=== PATIENT | female | born 1945 | race African-American/Black ===

== ENCOUNTER 2019-04-27 09:22 | Emergency (ER) | payer OTHER ==
[~2019-04-27] VITALS: Ht 167.6 cm; Wt 75.0 kg
[2019-04-27] MEDS ORDERED: ACETAMINOPHEN 500MG TABLET PO ONE (10:00)
[2019-04-27] MEDS ORDERED: METOCLOPRAMIDE HCL 10MG/2ML VIAL IV ONE (10:00)
[2019-04-27] MEDS ORDERED: SODIUM CHLORIDE 0.9% 500 ML IV ONE (10:00)
[2019-04-27 10:31] LABS: BASOPHILS % 0.8 % (0.0-2.0); EOSINOPHILS % 0.5 % (0.0-5.0); HEMATOCRIT. 42.9 % (36.0-48.0); HEMOGLOBIN. 13.2 g/dL (12.0-16.0); LYMPHOCYTES % 19.6 % (20.0-50.0); MEAN CORPUSCULAR VOLUME 74.6 fL (81.0-99.0); MEAN PLATELET VOLUME 7.6 fl (7.4-10.4); MONOCYTES % 5.1 % (2.0-8.0); PLATELET 305 x1000/uL (130-400); RED BLOOD CELL COUNT 5.76 mill/uL (4.2-5.4); RED CELL DISTRIBUTION WIDTH 15.5 % (11.6-14.6)
[2019-04-27 10:36] LABS: CHLORIDE 106 mEq/L (98-107)
[2019-04-27 10:45] LABS: CLARITY URINE CLEAR (CLEAR); COLOR URINE YELLOW (YELLOW); KETONES URINE NEGATIVE (NEGATIVE); LEUKOCYTE ESTERASE URINE NEGATIVE (NEGATIVE); NITRITE URINE NEGATIVE (NEGATIVE); OCCULT BLOOD URINE NEGATIVE (NEGATIVE); PH URINE 8.5 (4.5-8.0); PROTEIN URINE NEGATIVE (NEGATIVE); SPECIFIC GRAVITY URINE 1.009 (1.005-1.030); UROBILINOGEN URINE 0.2 E.U./dL (0.2-1.0)
[2019-04-27 13:15] VITALS: BP 137/63
== END 2019-04-27 13:05 | disposition home or self-care (01) ==
LOC: ER 09:22
DX: I10 Essential (primary) hypertension (principal); E11.9 Type 2 diabetes mellitus without complications
CPT/HCPCS: 36415; 70450; 80053; 81003; 85025; 96374; 99284; J2765; J7040

== ENCOUNTER 2021-02-22 21:50 | Emergency (ER) | payer OTHER ==
[~2021-02-22] VITALS: Ht 167.6 cm; Wt 75.0 kg
[2021-02-22 22:55] LABS: BASOPHILS % 0.8 % (0.0-2.0); EOSINOPHILS % 3.7 % (0.0-5.0); HEMATOCRIT. 34.1 % (36.0-48.0); HEMOGLOBIN. 10.4 g/dL (12.0-16.0); LYMPHOCYTES % 25.7 % (20.0-50.0); MEAN CORPUSCULAR HEMOGLOBIN 24.2 pg (28.0-32.0); MEAN CORPUSCULAR VOLUME 79.6 fL (81.0-99.0); MEAN PLATELET VOLUME 7.2 fl (7.4-10.4); MONOCYTES % 8.7 % (2.0-8.0); NEUTROPHILS % 61.1 % (40.0-76.0); PLATELET 285 x1000/uL (130-400); RED BLOOD CELL COUNT 4.28 mill/uL (4.2-5.4); RED CELL DISTRIBUTION WIDTH 17.5 % (11.6-14.6)
[2021-02-22 23:01] LABS: CHLORIDE 103 mEq/L (98-107)
[2021-02-22 23:03] LABS: CLARITY URINE CLEAR (CLEAR); COLOR URINE YELLOW (YELLOW); KETONES URINE TRACE (NEGATIVE); LEUKOCYTE ESTERASE URINE 2+ (NEGATIVE); NITRITE URINE NEGATIVE (NEGATIVE); OCCULT BLOOD URINE NEGATIVE (NEGATIVE); PROTEIN URINE NEGATIVE (NEGATIVE)
[2021-02-22] MEDS ORDERED: SODIUM BICARBONATE 8.4% 1 MEQ/ML 50ML SYR IV NR (23:30)
[2021-02-22] MEDS ORDERED: CALCIUM CHLORIDE 1GM/10ML SYR IV NR (23:30)
[2021-02-22] MEDS ORDERED: INSULIN REGULAR (HUMULIN R) 300UNITS/3ML VIAL IV NR (23:30)
[2021-02-22] MEDS ORDERED: DEXTROSE 50% WATER 50ML SYRINGE IV NR (23:30)
[2021-02-23] MEDS ORDERED: SODIUM CHLORIDE 0.9% 1,000 ML IV ONE (01:45)
[2021-02-23] MEDS ORDERED: IOHEXOL-350 100 ML BOTTLE ONE (03:25)
[2021-02-23] MEDS ORDERED: CEFTRIAXONE 1 G PREMIX 50 ML IV SCH (05:00)
[2021-02-23 06:30] VITALS: BP 135/61
== END 2021-02-23 06:58 | disposition short-term general hospital (02) ==
LOC: ER 21:50 → CANBEDREQ 02-23 08:04
DX: R07.89 Other chest pain (principal); R55 Syncope and collapse; R61 Generalized hyperhidrosis; C50.919 Malignant neoplasm of unspecified site of unspecified female breast; Z92.21 Personal history of antineoplastic chemotherapy; I10 Essential (primary) hypertension; E11.9 Type 2 diabetes mellitus without complications; Z79.899 Other long term (current) drug therapy; Z79.4 Long term (current) use of insulin
CPT/HCPCS: 36415; 71045; 71275; 80053; 81003; 82962; 83880; 84484; 85025; 93005; 96361; 96365; 96375; 99285; J0696; J1815; J3490; Q9967; Z7610

== ENCOUNTER 2024-10-10 06:42 | Inpatient (IN) | payer OTHER ==
[~2024-10-10] VITALS: Ht 157.5 cm; Wt 60.8 kg
[2024-10-10] MEDS ORDERED: LACTATED RINGERS 1,000 ML IV SCH (07:15)
[2024-10-10 07:38] LABS: BASOPHILS % 0.3 % (0.0-2.0); EOSINOPHILS % 0.6 % (0.0-5.0); HEMATOCRIT. 39.2 % (36.0-48.0); HEMOGLOBIN. 12.2 g/dL (12.0-16.0); LYMPHOCYTES % 10.1 % (20.0-50.0); MEAN PLATELET VOLUME 7.2 fl (7.4-10.4); MONOCYTES % 2.4 % (2.0-8.0); NEUTROPHILS % 86.6 % (40.0-76.0); PLATELET 315 x1000/uL (130-400); RED BLOOD CELL COUNT 5.32 mill/uL (4.2-5.4); RED CELL DISTRIBUTION WIDTH 16.3 % (11.6-14.6)
[2024-10-10 07:56] LABS: CREATININE 0.8 mg/dL (0.6-1.0); UREA NITROGEN BLOOD 16 mg/dL (9-23)
[2024-10-10 07:57] LABS: TROPONIN I HIGH SENSITIVITY < 4 ng/L (3.0-34)
[2024-10-10 07:58] LABS: ASPARTATE AMINOTRANSFERASE 12 IU/L (<34); BILIRUBIN DIRECT 0.2 mg/dL (<=3.0); BILIRUBIN TOTAL 0.6 mg/dL (0.1-1.0); PROTEIN TOTAL 6.6 g/dL (6.0-8.3)
[2024-10-10] MEDS ORDERED: IOHEXOL-350 100 ML BOTTLE ONE ×2 (09:21→23:38)
[2024-10-10] MEDS ORDERED: ENOXAPARIN 60MG/0.6ML SYR SUBCUT ONE (09:45)
[2024-10-10 10:45] VITALS: BP 132/63; PULSE 107; RESP 17; TEMP 36.1; O2SAT 99
[2024-10-10] MEDS ORDERED: CLONIDINE 0.1MG TABLET PO PRN (10:45)
[2024-10-10] MEDS ORDERED: IPRATROPIUM/ALBUTEROL 0.5-3(2.5)MG/3ML NEB NEB PRN (10:45)
[2024-10-10] MEDS ORDERED: ACETAMINOPHEN 325MG TABLET PO PRN (10:45)
[2024-10-10] MEDS ORDERED: ONDANSETRON HCL 4MG/2ML INJ IV PRN (10:45)
[2024-10-10] MEDS ORDERED: ENOXAPARIN 60MG/0.6ML SYR SUBCUT SCH (10:45)
[2024-10-10] MEDS ORDERED: DEXTROSE 50% WATER 50ML SYRINGE IV PRN (10:45)
[2024-10-10] MEDS ORDERED: HYDROCODONE/ACETAMINOPHEN 5/325MG TABLET PO PRN (10:45)
[2024-10-10] MEDS: ENOXAPARIN 60MG/0.6ML SYR SUBCUT SCH ×2 (12:19→21:38)
[2024-10-10] MEDS: BLOOD SUGAR DIAGNOSTIC STRIP TEST SCH (12:20)
[2024-10-10] MEDS: INSULIN LISPRO 100 UNITS/ML SUBCUT SCH (13:08)
[2024-10-10 13:27] LABS: TROPONIN I HIGH SENSITIVITY < 4 ng/L (3.0-34)
[2024-10-10] MEDS: SODIUM CHLORIDE 0.9% 1,000 ML IV SCH (13:28)
[2024-10-10 13:55] LABS: INR 1.1
[2024-10-10] MEDS ORDERED: NALOXONE HCL 0.4MG/ML VIAL IV PRN (14:00)
[2024-10-10 14:42] LABS: CLARITY URINE CLEAR (CLEAR); COLOR URINE YELLOW (YELLOW)
[2024-10-10 14:43] LABS: GLUCOSE URINE NEGATIVE (NEGATIVE); KETONES URINE NEGATIVE (NEGATIVE); LEUKOCYTE ESTERASE URINE 2+ (NEGATIVE); NITRITE URINE NEGATIVE (NEGATIVE); OCCULT BLOOD URINE NEGATIVE (NEGATIVE); PH URINE 7.0 (4.5-8.0); PROTEIN URINE NEGATIVE (NEGATIVE); SPECIFIC GRAVITY URINE 1.046 (1.005-1.030); UROBILINOGEN URINE 1.0 E.U./dL (0.2-1.0)
[2024-10-10 14:50] LABS: *AMPHETAMINES SCREEN URINE NEGATIVE (NEGATIVE); *BARBITURATES SCREEN URINE NEGATIVE (NEGATIVE); *BENZODIAZEPINES SCREEN URINE NEGATIVE (NEGATIVE); *COCAINE SCREEN URINE NEGATIVE (NEGATIVE); CANNABINOID URINE SCREEN NEGATIVE (NEGATIVE); ECSTASY MDMA SCREEN URINE NEGATIVE (NEGATIVE); METHADONE URINE SCREEN NEGATIVE (NEGATIVE); OPIATES URINE SCREEN NEGATIVE (NEGATIVE); PHENCYCLIDINE URINE SCREEN NEGATIVE (NEGATIVE)
[2024-10-10 15:12] LABS: SQUAMOUS EPITHELIAL CELL URINE NONE SEEN /lpf (RARE/1+)
[2024-10-10 15:16] LABS: BACTERIA URINE TRACE; RBC URINE NONE SEEN /hpf (0-2)
[2024-10-10 16:00] VITALS: BP 118/71; PULSE 112; RESP 18; TEMP 36.1; O2SAT 97
[2024-10-10 20:00] VITALS: BP 106/62; PULSE 104; RESP 19; TEMP 36.6; O2SAT 100
[2024-10-10 22:29] LABS: TROPONIN I HIGH SENSITIVITY 5 ng/L (3.0-34)
[2024-10-11] VITALS: BP 126/69; PULSE 106; RESP 19; TEMP 36.6; O2SAT 98
[2024-10-11 01:05] LABS: TROPONIN I HIGH SENSITIVITY 5 ng/L (3.0-34)
[2024-10-11 04:00] VITALS: BP 110/57; PULSE 109; RESP 18; TEMP 36.2; O2SAT 98
[2024-10-11] MEDS: LEVOTHYROXINE SODIUM 75MCG TABLET PO SCH (06:42)
[2024-10-11 08:00] VITALS: BP 113/60; PULSE 97; RESP 18; TEMP 36.2; O2SAT 97
[2024-10-11 08:23] LABS: BASOPHILS % 0.1 % (0.0-2.0); EOSINOPHILS % 1.1 % (0.0-5.0); HEMATOCRIT. 35.9 % (36.0-48.0); HEMOGLOBIN. 11.3 g/dL (12.0-16.0); LYMPHOCYTES % 9.2 % (20.0-50.0); MEAN PLATELET VOLUME 7.5 fl (7.4-10.4); MONOCYTES % 1.6 % (2.0-8.0); NEUTROPHILS % 88.0 % (40.0-76.0); PLATELET 280 x1000/uL (130-400); RED BLOOD CELL COUNT 4.94 mill/uL (4.2-5.4); RED CELL DISTRIBUTION WIDTH 15.6 % (11.6-14.6)
[2024-10-11 08:40] LABS: UREA NITROGEN BLOOD 16 mg/dL (9-23)
[2024-10-11] MEDS: PANTOPRAZOLE SODIUM 40 MG/VIAL IV SCH (08:55)
[2024-10-11 09:21] LABS: CREATININE 0.5 mg/dL (0.6-1.0)
[2024-10-11 12:00] VITALS: BP 114/59; PULSE 102; RESP 17; TEMP 36.3; O2SAT 97
[2024-10-11 16:00] VITALS: BP 126/84; PULSE 101; RESP 17; TEMP 36.3; O2SAT 99
[2024-10-11] MEDS ORDERED: ALBU18HF2 IH (17:46)
[2024-10-11 20:00] VITALS: BP 136/55; PULSE 108; RESP 20; TEMP 36.3; O2SAT 99
[2024-10-11] MEDS: METOPROLOL TARTRATE 25MG TABLET PO SCH (21:50)
[2024-10-12] VITALS: BP 142/50; PULSE 93; RESP 21; TEMP 36.3; O2SAT 100
[2024-10-12 04:00] VITALS: BP 120/40; PULSE 95; RESP 21; TEMP 36.3; O2SAT 99
[2024-10-12 08:00] VITALS: BP 135/72; PULSE 75; RESP 18; TEMP 36.7; O2SAT 98
[2024-10-12 12:00] VITALS: BP 135/97; PULSE 91; RESP 15; TEMP 36.2; O2SAT 99
[2024-10-12] MEDS ORDERED: APIX5TAB MT (14:20)
[2024-10-12] MEDS ORDERED: LEVO75TA7 PO (14:20)
[2024-10-12] MEDS ORDERED: METO25TA6 PO (14:20)
[2024-10-12 16:00] VITALS: BP 155/63; PULSE 94; RESP 18; TEMP 36.4; O2SAT 99
[2024-10-12 16:39] VITALS: BP 155/63; PULSE 94; TEMP 97.6; O2SAT 99
== END 2024-10-12 17:20 | disposition home or self-care (01) | DRG 176 ==
LOC: ER 06:48 → EDBEDREQTM 08:47 → EDBEDREQ 08:47 → ENRESERV 08:58 → 6WST 09:23
PROVIDERS: ADMIT Internal Medicine; ATTEND Internal Medicine
DX: I26.99 Other pulmonary embolism without acute cor pulmonale (principal); C78.00 Secondary malignant neoplasm of unspecified lung; D68.59 Other primary thrombophilia; C78.7 Secondary malignant neoplasm of liver and intrahepatic bile duct; C50.919 Malignant neoplasm of unspecified site of unspecified female breast; R91.8 Other nonspecific abnormal finding of lung field; I95.9 Hypotension, unspecified; K76.9 Liver disease, unspecified; I10 Essential (primary) hypertension; R79.89 Other specified abnormal findings of blood chemistry; E11.9 Type 2 diabetes mellitus without complications; Z86.718 Personal history of other venous thrombosis and embolism; Z92.21 Personal history of antineoplastic chemotherapy
CPT/HCPCS: 36415; 71045; 71275; 80048; 80076; 80305; 81003; 82962; 83036; 84484; 85025; 85379; 93005; 93970; 93971; 99291; J1650; J1815; J2470; J7030; Q9967